=== PATIENT | male | born 1960 | race Caucasian/White ===

== ENCOUNTER 2023-01-12 08:54 | Emergency (ER) | payer OTHER ==
--- OUTSIDE RECORDS SUMMARY | 2023-01-12 08:58 | XMS REPORT | Continuity of Care Document ---
:[address] [facility] t Address [address] [place] [address] [place] [id number] Care Team Providers Name Role Phone Kendall Daly MD Primary Care Physician LILLY WOOD Attending Clinician Unavailable EVERETT WAY Attending Clinician Unavailable Brock Ceron Attending Clinician LESLI RG Attending Clinician Unavailable Problems Condition Condition Condition Status Onset Resolution Last Treating Co mments Source Name Details Category Date Date Treatment Clinician Date Lumbar Lumbar Problem Active 2021-01-21 Moy tri radiculopa radiculopa 21:20:44 l thy thy [facility] (disorder) (disorder) Active Problem 01/21/2021 [facility] Pain in Pain in Problem Active 2021-01-21 Me moria right knee right knee 21:20:44 l (finding) (finding) Herm jennifer Active Problem 01/21/2021 [facility] Allergies, Adverse Reactions, Alerts Allergy Allergy Status Severity Reaction(s) Onset Inactive Treating Comm ents Source Name Type Date Date Clinician Penicill Propensi Active Rash Method i ins ty to 8-25 st adverse 00:00: Hospita reaction 00 l s to drug penicill penicill Active Memori a in in l [place] Social History Social Habit Start Date Stop Date Quantity Comments Source Sexual orientation 2020-10-27 Heterosexual Meth odist 21:18:07 (finding) Hospital Gender identity 2020-10-27 Identifies as male M ethodist 21:18:07 gender (finding) Hospital History of tobacco Snuff User Method ist use Hospital Tobacco use and 2021-09-28 2021-09-28 User of smokeless Me thodist exposure 00:00:00 00:00:00 tobacco Hospital Alcohol intake 2021-09-28 2021-09-28 Current drinker of Me thodist 00:00:00 00:00:00 alcohol (finding) Hospita l History of Social 2021-09-28 2021-09-[address] function 00:00:00 00:00:00 Hospital Social History 2020-10-13 2020-10-13 [facility] 16:37:18 16:37:18 Sex Assigned At [birth year] [facility] 00:00:00 00:00:00 Hospital Smoking Status Start Date Stop Date Source Never smoked tobacco [facility] Medications Ordered Filled Start Stop Current Ordering Indication Dosage Frequency Signature Comments Components Source Medication Medication Date Date Medication? Clinician (SIG) Name Name celecoxib Yes 200mg Q.5D Take 1 Metho di (CeleBREX) [address] 200 MG 00:00: (200 mg Hospita capsule 00 total) by l mouth 2 (two) times a day. baclofen 2020-05 Yes Methodi (LIORESAL) 2-02 st 10 MG 11:09: Hospita tablet 05 l losartan 2020-05 Yes Methodi (COZAAR) 2-02 st 100 MG 11:07: Hospita tablet 15 l escitalopra Yes Method i m (LEXAPRO) 8-23 st 10 MG 00:00: Hospita tablet 00 l gabapentin Yes 300 mg, Moy tri 5-21 PO, TID, 0 l 17:06: Refill(s) Lexapro Yes 30 mg, PO, Moy tri 5-21 Daily, 0 l 17:05: Refill(s) [place] Losartan Yes 30 mg, PO, Mem oria 5-21 Daily, 0 l 17:02: Refill(s) Immunizations Ordered Immunization Filled Immunization Date Status Commen ts Source Name Name [id number] 2020-09-08 Completed Moy rial [id number] 00:00:00 Herm jennifer <sup>1</sup> [id number] 2020-08-18 Completed Moy tril [id number] 00:00:00 Herm jennifer Vital Signs Vital Name Observation Time Observation Value Comments Source Systolic (mm Hg) 2020-10-13 16:34:00 Moy rial [place] Diastolic (mm Hg) 2020-10-13 16:34:[address] [facility] orial [place] Heart Rate 2020-10-13 16:34:00 [facility] Respitory Rate 2020-10-13 16:34:00 Memori al [place] Height 2020-10-13 16:34:00 175.26 cm [facility] Weight 2020-10-13 16:34:00 [facility] [place] BMI Calculated 2020-10-13 16:34:00 Memori al [place] Procedures This patient has no known procedures. Plan of Care Planned Activity Planned Date Details Comments Source Future Scheduled 2022-12-25 [facility] Test 04:46:12 malignant neoplasm of colon (procedure) [code = 674271889] Future Scheduled 2022-12-25 [facility] Test 04:46:12 malignant neoplasm of colon (procedure) [code = 017993336] Future Scheduled 2022-12-25 [facility] Test 04:46:12 malignant neoplasm of colon (procedure) [code = 373036260] Future Scheduled 2022-12-25 Hepatitis C [facility] Test 04:46:12 screening (procedure) [code = 084206859] Future Scheduled 2022-12-25 [facility] for [facility] Test 04:46:12 malignant neoplasm of colon (procedure) [code = 806714505] Future Scheduled 2022-12-25 [facility] for [facility] Test 04:46:12 malignant neoplasm of colon (procedure) [code = 015916494] Future Scheduled 2022-12-25 SHINGLES VACCINES [facility] Hospital Test 04:46:12 (1 of 2) [code = SHINGLES VACCINES (1 of 2)] Future Scheduled 2022-12-25 COVID-19 VACCINE (3 Meth odist Hospital Test 04:46:12 - Pfizer series) [code = COVID-19 VACCINE (3 - Pfizer series)] Future Scheduled 2022-12-25 INFLUENZA VACCINE [facility] Hospital Test 04:46:12 [code = INFLUENZA VACCINE] Encounters Start End Encounter Admission Attending Care Care Encounter Source Date/Time Date/Time Type Type Clinicians Facility Department ID 2021-09-28 2021-09-28 Outpatient NINA, [facility] [id number] [place] 00:00:00 00:00:00 LILLY 853 Metho di 2021-09-28 2021-09-28 Outpatient NINA [facility] [id number] [place] 00:00:00 00:00:00 LILLY 324 Metho di 2021-09-28 2021-09-28 Outpatient NINA, [facility] [id number] [place] 00:00:00 00:00:00 LILLY 131 Metho di 2021-05-30 2021-05-30 Outpatient SITTER, [facility] [id number] [place] 00:00:00 00:00:00 EVERETT 299 Method i 2021-05-22 2021-05-22 Outpatient [facility] [id number] [place] 00:00:00 00:00:00 298 Method i 2021-05-14 2021-05-14 Outpatient SITTER, [facility] [id number] [place] 00:00:00 00:00:00 EVERETT 297 Method i 2021-04-26 2021-04-26 Outpatient SITTER, [facility] [id number] [place] 00:00:00 00:00:00 EVERETT 784 Method i 2021-01-25 2021-01-25 Outpatient SITTER, [facility] [id number] [place] 00:00:00 00:00:00 EVERETT 480 Method i 2021-01-25 2021-01-25 Outpatient SITTER, [facility] [id number] [place] 00:00:00 00:00:00 EVERETT 493 Method i 2021-01-25 2021-01-25 Outpatient SITTER, [facility] [id number] [place] 00:00:00 00:00:00 EVERETT 470 Method i 2021-01-19 2021-01-19 Ambulatory nullFlavo MNA [id number] [facility] 14:00:00 14:00:00 Pre-Reg r Neurology 03 l [place] 2021-01-19 2021-01-19 Outpatient ARJUN Ceron MHMISCHER [id number] 09:00:00 09:00:00 Brock 03 [facility] 2021-01-17 2021-01-17 Outpatient ARCENIO [facility] [id number] [place] 00:00:00 00:00:00 LESLI 919 Method i 2021-01-17 2021-01-17 Outpatient ARCENIO [facility] [id number] [place] 00:00:00 00:00:00 LESLI 902 Method i 2021-01-17 2021-01-17 Outpatient ARCENIO [facility] [id number] [place] 00:00:00 00:00:00 LESLI 326 Method i 2020-12-07 2020-12-07 Outpatient MHIE MHIE [id number] [place] 15:15:00 15:15:00 03 l [place] 2020-11-09 2020-11-09 Outpatient MHIE MHIE [id number] [place] 10:45:00 10:45:00 02 l [place] 2020-11-03 2020-11-03 Ambulatory nullFlavo MNA [id number] [facility] 13:15:00 13:15:00 Pre-Reg r Neurology 01 l Anastasiya Terry 2020-11-03 2020-11-03 Outpatient MHIE MHIE [id number] [place] 08:15:00 08:15:00 01 l [place] 2020-11-03 2020-11-03 Outpatient STEVE CeronSCHER MHMISCHER [id number] 08:15:00 08:15:00 Brock 01 Artie 2020-10-13 2020-10-14 Outpatient nullFlavo MNA [id number] Mem[facility] 16:15:00 04:59:59 r Neurology 00 l Anastasiya Terry 2020-10-13 2020-10-13 Outpatient RUSSELL CeronMISCHER MHMISCHER [id number] 11:15:00 23:59:59 Brock 00 Artie 2020-10-13 2020-10-13 Outpatient MHIE MHIE [id number] [place] 11:15:00 11:15:00 00 betsy Terry Results This patient has no known results.
[2023-01-12 09:43] LABS: Absolute Lymphocytes (CBC) 2.3 K/uL (0.7-4.9); Hematocrit 49.6 % (39.6-49.0); Lymphocytes % 25.4 % (15.3-44.8); MCV 97.5 fL (80-100); MPV 7.3 fL (7.6-11.3); Platelets 230 thou/uL (152-406); RBC Red Blood Cell Count 5.08 M/uL (4.33-5.43)
[2023-01-12] MEDS ORDERED: KETOROLAC 30 MG/ML INJ ONE (09:45)
[2023-01-12] MEDS ORDERED: ONDANSETRON 4 MG/2 ML VIAL ONE (09:45)
[2023-01-12 09:57] LABS: Albumin 4.1 g/dL (3.4-5.0); Bilirubin Total 0.6 mg/dL (0.2-1.0); Potassium 4.4 mEq/L (3.5-5.1); Protein, Total 7.7 g/dL (6.4-8.2)
--- NOTE | 2023-01-12 10:32 | RAD REPORT ---
EXAM DESCRIPTION: CTAbdomen Pelvis W Contrast - 01/12/2023 10:17 am CLINICAL HISTORY: Abd pain;Flank pain COMPARISON: No comparisons TECHNIQUE: CT of the abdomen and pelvis was performed with IV contrast. All CT scans are performed using dose optimization technique as appropriate and may include automated exposure control or mA/KV adjustment according to patient size. FINDINGS: Lower chest: No acute abnormality. Liver: Hepatic steatosis. Biliary: No biliary ductal dilatation. Stomach: No significant focal abnormality. Duodenum: No significant focal abnormality. Pancreas: No significant abnormality. Spleen: No significant abnormality. Adrenal: No suspicious lesions. Kidney/ureter: No hydronephrosis. No renal calculi. Too small to characterize and/or benign appearing renal lesions are noted. Retroperitoneum: No retroperitoneal adenopathy. Vascular: No aneurysm. Bowel: No significant focal abnormality. Normal appendix. Peritoneum: No ascites or free air. Fat containing umbilical hernia. Bladder: Grossly unremarkable. Reproductive: No adnexal masses. Bones: No acute fracture. Moderate to severe disc height loss at L3-4. Other: n/a IMPRESSION: No acute intra-abdominal or pelvic finding. Normal appendix. No urinary tract calculi.
[2023-01-12 11:26] LABS: Urine Bacteria None Seen /HPF (<20); Urine Bilirubin NEGATIVE (Negative); Urine Blood Negative (Negative); Urine Clarity Clear (Clear); Urine Color Light-Yellow (Yellow); Urine Glucose NEGATIVE (Negative); Urine Mucus Slight /HPF (None Seen); Urine Protein TRACE (Negative); Urine RBC <5 /HPF (None Seen); Urine Urobilinogen Normal (Normal)
[2023-01-12 11:27] LABS: Specific Gravity > 1.030 (1.005-1.030)
--- NOTE | 2023-01-12 11:36 | EDPHYS ---
Physician Documentation [facility] Name: Rik Ceron Jr Age: 62 yrs Sex: Male : 1960 Arrival Date: 01/12/2023 Time: 08:54 Bed 16 Private MD: ED Physician Maris Staples HPI: 01/12 09:46 This 62 yrs old Male presents to ER via Ambulatory with complaints of Back Pain. sp3 09:46 62-year-old male with history of depression presents to the ED with chief complaint sp3 right-sided back pain midway down the started approximately 2 days ago. Patient denies any injury or insidious event. He denies any headache, neck pain, chest pain, shortness of breath, intra-abdominal pain, lower back pain, dysuria, urinary frequency, foul-smelling urine, gross hematuria, fever, vomiting, diarrhea, or any other signs or symptoms on ROS at this time. Pain is described as sharp and positional in nature. He denies prior kidney stones or other urological pathology.. Historical: - PMHx: 10:10 Hypertensive disorder; db - Immunization history:: Adult Immunizations unknown. - Social history:: Smoking status: Patient denies any tobacco usage or history of. ROS: 09:47 Constitutional: Negative for fever, chills, and weight loss, Eyes: Negative for injury, sp3 pain, redness, and discharge, ENT: Negative for injury, pain, and discharge, Neck: Negative for injury, pain, and swelling, Cardiovascular: Negative for chest pain, palpitations, and edema, Respiratory: Negative for shortness of breath, cough, wheezing, and pleuritic chest pain, MS/Extremity: Negative for injury and deformity, Skin: Negative for injury, rash, and discoloration, Neuro: Negative for headache, weakness, numbness, tingling, and seizure, Psych: Negative for depression, anxiety, suicide ideation, homicidal ideation, and hallucinations, Allergy/Immunology: Negative for hives, rash, and allergies, Endocrine: Negative for neck swelling, polydipsia, polyuria, polyphagia, and marked weight changes, Hematologic/Lymphatic: Negative for swollen nodes, abnormal bleeding, and unusual bruising. 09:47 All other systems are negative. Exam: 09:47 Constitutional: This is a well developed, well nourished patient who is awake, alert, sp3 and in no acute distress. Head/Face: Normocephalic, atraumatic. Eyes: Pupils equal round and reactive to light, extra-ocular motions intact. Lids and lashes normal. Conjunctiva and sclera are non-icteric and not injected. Cornea within normal limits. Periorbital areas with no swelling, redness, or edema. Neck: Trachea midline, no thyromegaly or masses palpated, and no cervical lymphadenopathy. Supple, full range of motion without nuchal rigidity, or vertebral point tenderness. No Meningismus. Chest/axilla: Normal chest wall appearance and motion. Nontender with no deformity. No lesions are appreciated. Cardiovascular: Regular rate and rhythm with a normal S1 and S2. No gallops, murmurs, or rubs. Normal PMI, no JVD. No pulse deficits. Respiratory: Lungs have equal breath sounds bilaterally, clear to auscultation and percussion. No rales, rhonchi or wheezes noted. No increased work of breathing, no retractions or nasal flaring. Abdomen/GI: Soft, non-tender, with normal bowel sounds. No distension or tympany. No guarding or rebound. No evidence of tenderness throughout. Skin: Warm, dry with normal turgor. Normal color with no rashes, no lesions, and no evidence of cellulitis. MS/ Extremity: Pulses equal, no cyanosis. Neurovascular intact. Full, normal range of motion. Neuro: Awake and alert, GCS 15, oriented to person, place, time, and situation. Cranial nerves II-XII grossly intact. Motor strength 5/5 in all extremities. Sensory grossly intact. Cerebellar exam normal. Normal gait. Psych: Awake, alert, with orientation to person, place and time. Behavior, mood, and affect are within normal limits. 09:47 Back: No direct pain to palpation noted. Patient is pointing to the mid back on the right side for his symptoms.. Vital Signs: 09:10 BP 143 / 92; Pulse 53; Resp 18; Temp 99.1(O); Pulse Ox 97% on R/A; Weight 113.4 kg; db Height 5 ft. 9 in. ; Pain 0/10; 10:00 BP 139 / 86; Pulse 52; Resp 16; Pulse Ox 97% on R/A; db 11:30 BP 140 / 88; Pulse 56; Resp 16; Pulse Ox 98% on R/A; db 09:10 Body Mass Index 36.92 (113.40 kg, 175.26 cm) db 09:10 Pain Scale: Adult db MDM: 09:21 Patient medically screened. sp3 09:47 Data reviewed: vital signs, nurses notes, lab test result(s), radiologic studies. ED sp3 course: 62-year-old male with right-sided back pain. Differential diagnosis includes musculoskeletal pain, kidney stone, UTI, and to a much lesser extent vascular pathology including AAA or dissection. I am not highly suspicious of vascular injury/compromise, sepsis, shock or any other critical findings. We will administer ketorolac IV and obtain CT scan of the abdomen and pelvis, laboratory values and urinalysis. Disposition based on patient course and work-up.. 11:35 ED course: CT demonstrates no significant abnormality and laboratory values are within sp3 normal limits including urinalysis. We will safely discharge patient home at this time. Will prescribe muscle relaxer and oral NSAID for symptomatic control and follow-up with Dr. Daly.. 01/12 09:21 Order name: CBC with Diff; Complete Time: 10:46 sp3 01/12 09:21 Order name: CMP; Complete Time: 10:46 sp3 01/12 09:21 Order name: Lipase; Complete Time: 10:46 sp3 01/12 09:21 Order name: Urinalysis w/ reflexes; Complete Time: 11:30 sp3 01/12 09:21 Order name: CT Abd/Pelvis - IV Contrast Only; Complete Time: 10:46 sp3 01/12 09:21 Order name: IV Saline Lock; Complete Time: 09:33 sp3 01/12 09:21 Order name: Labs collected and sent; Complete Time: 09:33 sp3 Administered Medications: 09:46 Drug: TORadol - Ketorolac IVP 15 mg Route: IVP; Site: left antecubital; db 11:47 Follow up: Response: No adverse reaction db 09:46 Drug: Ondansetron IVP 4 mg Route: IVP; Site: left antecubital; db 11:47 Follow up: Response: No adverse reaction db Disposition Summary: 01/12/23 11:35 Discharge Ordered Location: Home sp3 Condition: Stable sp3 Diagnosis - Muscle strain, muscle spasm sp3 Followup: sp3 - With: Private Physician - When: Upon discharge from the Emergency Department - Reason: Continuance of care Discharge Instructions: - Discharge Summary Sheet sp3 - Muscle Strain sp3 Forms: - Medication Reconciliation Form sp3 - Thank You Letter sp3 - Antibiotic Education sp3 - Prescription Opioid Use sp3 - Patient Portal Instructions sp3 - Leadership Thank You Letter sp3 Prescriptions: - Cyclobenzaprine 10 mg Oral Tablet - take 1 tablet by ORAL route every 8 hours As needed; 30 tablet; Refills: 0, sp3 Product Selection Permitted - Diclofenac Sodium 75 mg Oral Tablet Sustained Release - take 1 tablet by ORAL route 2 times per day; 30 tablet; Refills: 0, Product sp3 Selection Permitted Signatures: Dispatcher [employer] EDMS Maris Staplse MD MD sp3 Pamela Flores RN RN db Corrections: (The following items were deleted from the chart) 09:18 09:17 Allergies: No Known Allergies; db db
--- NOTE | 2023-01-12 11:36 | ER ---
Nurse's Notes [facility] Name: Rik Ceron Jr Age: 62 yrs Sex: Male : 1960 Arrival Date: 01/12/2023 Time: 08:54 Bed 16 Private MD: Diagnosis: Muscle strain, muscle spasm Presentation: 01/12 09:10 Chief complaint: Patient states: PATIENT STATES HAS RIGHT LOWER BACK PAIN X 3 DAYS db WORSE WHEN MOVES A CERTAIN WAY. STATES PAIN IS FINE NOW. Coronavirus screen: Vaccine status: Patient reports receiving the 2nd dose of the covid vaccine. Client denies travel out of the [place] in the last 14 days. At this time, the client does not indicate any symptoms associated with coronavirus-19. Ebola Screen: Patient negative for fever greater than or equal to 101.5 degrees Fahrenheit, and additional compatible Ebola Virus Disease symptoms Patient denies exposure to infectious person. Patient denies travel to an Ebola-affected area in the 21 days before illness onset. No symptoms or risks identified at this time. Initial Sepsis Screen: Does the patient meet any 2 criteria? No. Patient's initial sepsis screen is negative. Does the patient have a suspected source of infection? No. Patient's initial sepsis screen is negative. Risk Assessment: Do you want to hurt yourself or someone else? Patient reports no desire to harm self or others. Onset of symptoms was January 09, 2023. 09:10 Method Of Arrival: Ambulatory db 09:10 Acuity: ALBERTO 3 db Triage Assessment: 09:17 General: Appears in no apparent distress. comfortable, Behavior is calm, cooperative. db Pain: Complains of pain in back. Neuro: Level of Consciousness is awake, alert, obeys commands, Oriented to person, place, time, situation. Musculoskeletal: Circulation, motion, and sensation intact. Capillary refill < 3 seconds, Range of motion: intact in all extremities. Historical: - PMHx: 10:10 Hypertensive disorder; db - Immunization history:: Adult Immunizations unknown. - Social history:: Smoking status: Patient denies any tobacco usage or history of. Screenin:18 [facility] ED Fall Risk Assessment (Adult) History of falling in the last 3 months, db including since admission No falls in past 3 months (0 pts) Confusion or Disorientation No (0 pts) Intoxicated or Sedated No (0 pts) Impaired Gait No (0 pts) Mobility Assist Device Used No (0 pt) Altered Elimination No (0 pt) Score/Fall Risk Level 0 - 2 = Low Risk Oriented to surroundings, Maintained a safe environment. Abuse screen: Denies threats or abuse. Denies injuries from another. Nutritional screening: No deficits noted. Tuberculosis screening: No symptoms or risk factors identified. Assessment: 09:18 Reassessment: Patient appears in no apparent distress at this time. Patient and/or db family updated on plan of care and expected duration. Pain level reassessed. Patient is alert, oriented x 3, equal unlabored respirations, skin warm/dry/pink. General: Appears in no apparent distress. comfortable, Behavior is calm, cooperative. Pain: Complains of pain in RIGHT BACK. Neuro: Level of Consciousness is awake, alert, obeys commands, Oriented to person, place, time, situation. Respiratory: Airway is patent Respiratory effort is even, unlabored, Respiratory pattern is regular, symmetrical. 10:08 Reassessment: PATIENT TO CT. db 10:52 Reassessment: Patient appears in no apparent distress at this time. PATIENT AMBULATORY db TO RESTROOM. 11:30 Reassessment: Patient appears in no apparent distress at this time. Patient and/or db family updated on plan of care and expected duration. Pain level reassessed. Patient is alert, oriented x 3, equal unlabored respirations, skin warm/dry/pink. Vital Signs: 09:10 BP 143 / 92; Pulse 53; Resp 18; Temp 99.1(O); Pulse Ox 97% on R/A; Weight 113.4 kg; db Height 5 ft. 9 in. ; Pain 0/10; 10:00 BP 139 / 86; Pulse 52; Resp 16; Pulse Ox 97% on R/A; db 11:30 BP 140 / 88; Pulse 56; Resp 16; Pulse Ox 98% on R/A; db 09:10 Body Mass Index 36.92 (113.40 kg, 175.26 cm) db 09:10 Pain Scale: Adult db ED Course: 08:56 Patient arrived in ED. ts1 09:02 Pamela Flores, RN is Primary Nurse. db 09:06 Maris Staples MD is Attending Physician. sp3 09:17 Triage completed. db 09:17 Arm band placed on Patient placed in an exam room. db 09:18 Patient has correct armband on for positive identification. Bed in low position. Call db light in reach. Side rails up X 1. 09:29 Inserted saline lock: 20 gauge in left antecubital area, using aseptic technique. Blood ds4 collected. 10:19 CT Abd/Pelvis - IV Contrast Only In Process Unspecified. EDMS 11:45 Provided Education on: DISCHARGE. db 11:45 No provider procedures requiring assistance completed. IV discontinued, intact, db bleeding controlled, No redness/swelling at site. Administered Medications: 09:46 Drug: TORadol - Ketorolac IVP 15 mg Route: IVP; Site: left antecubital; db 11:47 Follow up: Response: No adverse reaction db 09:46 Drug: Ondansetron IVP 4 mg Route: IVP; Site: left antecubital; db 11:47 Follow up: Response: No adverse reaction db Medication: 11:45 VIS not applicable for this client. db Outcome: 11:35 Discharge ordered by . sp3 11:45 Discharged to home ambulatory, with friend. db 11:45 Condition: stable 11:45 Discharge instructions given to patient, Instructed on discharge instructions, follow up and referral plans. Prescriptions given X 2. 11:47 Patient left the ED. db Signatures: Dispatcher [employer] EDMS Daryl Medrano ds4 Maris Staples MD MD sp3 Pamela Flores, RN RN db Veronica Fortune PAS PAS ts1 Corrections: (The following items were deleted from the chart) 09:18 09:17 Allergies: No Known Allergies; db db
[2023-01-12 11:55] VITALS: TEMP 99.1
[2023-01-12 12:07] VITALS: BP 140/88; O2SAT 98
== END 2023-01-12 11:47 | disposition home or self-care (01) ==
LOC: ER 08:54
DX: S39.012A Strain of muscle, fascia and tendon of lower back, initial encounter (principal); M62.830 Muscle spasm of back; I10 Essential (primary) hypertension
CPT/HCPCS: 85025; 81001; 36415; 83690; 80053; 74177; 96375; 96374; 99284; Q9967; J2405